=== PATIENT | male | born 1990 | race Caucasian/White ===

== ENCOUNTER 2024-10-27 08:46 | Day surgery (SDC) | payer BC ==
[~2024-10-27 08:46] MED LIST: Dexamethasone 4 MG/ML 5 ML MDV ONE; EPINEPHrine 1 MG/ML SDV ONE; Lidocaine 1% 2 ML ONE; Midazolam 1 MG/ML 2 ML SDV ONE; Ondansetron 4 MG/2 ML SDV ONE; Ropivacaine 0.5% 5 MG/ML 30 ML SDV ONE; Sodium Chloride 0.9% 10 ML Syringe FLUSH PRN; Sodium Chloride 0.9% 10 ML Syringe FLUSH SCH; dexmedeTOMIDine HCl 200 MCG/2 ML SDV ONE; fentaNYL 100 MCG/2 ML SDV ONE; propofoL 500 MG/50 ML 50 ML ONE
[2024-10-27] MEDS ORDERED: Lactated Ringers 1,000 ML IV ONE (08:47)
[2024-10-27] MEDS: Lactated Ringers 1,000 ML IV SCH (09:10)
[2024-10-27] MEDS ORDERED: Propofol 200 MG/20 ML SDV ONE (10:56)
[2024-10-27] MEDS ORDERED: fentaNYL 100 MCG/2 ML SDV ONE (11:13)
[2024-10-27] MEDS ORDERED: propofoL 500 MG/50 ML 50 ML ONE (11:37)
[2024-10-27] MEDS ORDERED: fentaNYL 100 MCG/2 ML SDV IVPUSH PRN (12:41)
[2024-10-27] MEDS ORDERED: Acetaminophen/HYDROcodone 325-5 MG Tab PO PRN (12:54)
== END 2024-10-27 14:20 | disposition home or self-care (01) ==
LOC: JD.SDS 08:46
PROVIDERS: ATTEND Orthopaedic Surgery
DX: M75.101 Unspecified rotator cuff tear or rupture of right shoulder, not specified as traumatic (principal); S46.211A Strain of muscle, fascia and tendon of other parts of biceps, right arm, initial encounter; E11.9 Type 2 diabetes mellitus without complications; E78.00 Pure hypercholesterolemia, unspecified; Z87.891 Personal history of nicotine dependence; Z79.899 Other long term (current) drug therapy
CPT/HCPCS: 23412; 23430; 64415; J0169; J0690; J1100; J2003; J2250; J2405; J2704; J2795; J3010; J7120; 01630; J3490